=== PATIENT | male | born 2000 | race Caucasian/White ===

== ENCOUNTER 2025-01-16 11:03 | Emergency (ER) | payer OTHER, BC, SELFPAY ==
[2025-01-16 11:31] VITALS: BP 154/92; PULSE 57; RESP 18; TEMP 36.8; O2SAT 97; BMI 27.8
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
== END 2025-01-16 12:48 | disposition home or self-care (01) ==
PROVIDERS: Emergency Provider Family Medicine; PCP Family Medicine
DX: S42.034A Nondisplaced fracture of lateral end of right clavicle, initial encounter for closed fracture (principal); M25.511 Pain in right shoulder; V86.95XA Unspecified occupant of 3- or 4- wheeled all-terrain vehicle (ATV) injured in nontraffic accident, initial encounter
CPT/HCPCS: 73000; 73030; 99283; A4565